=== PATIENT | female | born 2000 | race Caucasian/White ===

== ENCOUNTER 2024-05-20 04:09 | Outpatient (CLI) | payer MEDICAID, SELFPAY ==
[2024-05-20 16:54] LABS: Panorama Kit Sent via Fed Ex
[2024-05-20 17:03] LABS: Abs Immature Grans 0.07 10^3/uL (0.0-0.06); Absolute Basophil Count 0.04 10^3/uL (0.0-0.2); Absolute Lymphocyte Count 1.76 10^3/uL (1.2-3.4); Absolute Monocyte Count 0.54 10^3/uL (0.1-0.8); Absolute Neutrophil Count 8.31 10^3/uL (1.2-6.7); Basophils % 0.4 %; Eosinophils % 0.9 %; HCT 34.5 % (36.0-46.0); HGB 11.4 g/dL (11.2-15.7); Immature Grans % 0.6 %; Lymphocytes % 16.3 %; MCH 30.2 pg (27.0-33.0); MCV 92 fL (80-95); MPV 11.4 fL (8.0-11.0); Neutrophils % 76.8 %; Platelet Count 255 10^3/uL (130-400); RBC 3.77 10^6/uL (3.93-5.22); RDW-SD 43.2 fL; WBC 10.82 10^3/uL (4.4-10.8)
[2024-05-20 17:29] LABS: Hemoglobin A1C 5.3 % (<5.7)
[2024-05-20 17:40] LABS: ALT 19 U/L (14-59); AST 12 U/L (15-37); Albumin 3.2 g/dL (3.4-5.0); Alkaline Phosphatase 71 U/L (46-116); Anion Gap 12.1 mmol/L (3-11); BUN 7 mg/dL (7-18); Bilirubin, Total 0.26 mg/dL (0.2-1.0); CO2 20.9 mmol/L (21.0-32.0); CREATININE 0.7 mg/dL (0.55-1.02); Calcium 9.3 mg/dL (8.5-10.1); Chloride 105 mmol/L (98-107); Estimated GFR 123.01 (mL/min/1.73m2); Glucose 85 mg/dL (74-106); Potassium 3.9 mmol/L (3.5-5.1); Sodium 138 mmol/L (136-145); TSH (W/Ref FT4) 2.56 uIU/mL (0.36-3.74); Total Protein 7.3 g/dL (6.4-8.2)
[2024-05-23 12:58] LABS: HIV-1/2 Ag & Ab Screen Negative (Negative)
[2024-05-24 09:49] LABS: Hepatitis B Surface Ag Negative (Negative)
[2024-05-24 09:55] LABS: Varicella IgG Antibody Negative (See Note)
[2024-05-24 10:00] LABS: Rubella IgG Ab (UVM) Positive (See Note)
[2024-05-24 11:42] LABS: Hepatitis C Ab w Rflx HCV PCR Negative (Negative)
[2024-05-24 18:47] LABS: Syphilis IgG w/Reflex Nonreactive (Nonreactive)
[2024-05-28 16:55] LABS: Result Summary NEGATIVE; Specimen WB Whole Blood
== END 2024-05-20 04:10 | disposition home or self-care (01) ==
PROVIDERS: Visit Provider Advanced Practice Midwife
DX: Z34.91 Encounter for supervision of normal pregnancy, unspecified, first trimester (principal)
CPT/HCPCS: 36415; 80053; 81220; 81222; 86787; 86803; 86850; 86900; 86901; 87340; 87389; 83036; 84443; 85025; 86762; 86780

== ENCOUNTER 2024-05-20 16:06 | Outpatient (REF) | payer MEDICAID, SELFPAY ==
[2024-05-20 17:30] LABS: *AMPHETAMINES SCREEN URINE Negative (Negative); *BARBITURATES SCREEN URINE Negative (Negative); *BENZODIAZEPINES SCREEN URINE Negative (Negative); Cannabinoids THC Negative (Negative); Cocaine Screen,Urine Negative (Negative); METHADONE URINE SCREEN Negative (Negative); OPIATES URINE SCREEN Negative (Negative)
[2024-05-20 17:32] LABS: Tricyclic Antidepressants Negative (Negative)
[2024-05-20 18:21] LABS: COMMENT (LAB VIEW ONLY) 168.98 mg/dL; PROTEIN 22.7 mg/dL; Prot/Crea Ur Ratio 0.13
[2024-05-24 11:04] LABS: Fentanyl Scr w/Rfx Confirm Negative ng/mL (<1)
[2024-05-24 12:05] LABS: Chlamydia Result Negative (Negative); GC Result Negative (Negative)
[2024-05-26 08:53] LABS: Buprenorphine Negative ng/mL (Cutoff: 5.0); Norbuprenorphine Negative ng/mL (Cutoff: 2.5)
== END 2024-05-20 16:07 | disposition home or self-care (01) ==
LOC: LBN 16:06
PROVIDERS: Visit Provider Advanced Practice Midwife
DX: Z34.91 Encounter for supervision of normal pregnancy, unspecified, first trimester (principal)
CPT/HCPCS: 80307; 80348; 87491; 87591; 82565; 84156; 87086

== ENCOUNTER 2024-05-24 04:04 | Outpatient (CLI) | payer MEDICAID, SELFPAY ==
[2024-05-24 15:44] LABS: Glucose,1 Hr (Glucola) 94 mg/dL (80-140)
== END 2024-05-24 04:05 | disposition home or self-care (01) ==
LOC: LBO 04:04
PROVIDERS: Advanced Practice Midwife; Visit Provider Advanced Practice Midwife
DX: Z34.91 Encounter for supervision of normal pregnancy, unspecified, first trimester (principal)
CPT/HCPCS: 36415; 82950

== ENCOUNTER 2024-05-25 01:34 | Outpatient (CLI) | payer MEDICAID, SELFPAY ==
--- NOTE | 2024-05-25 07:42 | DI.US_ITS ---
Exam(s) US OB 2-3 TRIMESTER EXAM: US OB 2-3 TRIMESTER CLINICAL HISTORY: dating, ? anatomy,z34.90,O09.30. TECHNIQUE: Transabdominal obstetrical ultrasound performed. COMPARISON: No exams were available for comparison FINDINGS: Number of fetuses: One. position: Vertex. Placental grade: 1 Placental location: Posterior. No evidence of previa. Cervical length 5.3 cm. BIOMETRIC DATA: BPD: 38mm = 17+ 3 weeks HC: 140mm = 17+ 2 weeks AC: 122mm = 17+ 6 weeks FL: 26mm = 17+ 6 weeks Cisterna Magna: 1.8 mm Cerebellum: 1.6 cm EFW: 211 grms 19% Composite Age: 17+ 4 weeks EDC by US: October Heart Rate: 136 Splint finishBPM Amniotic fluid : Amount of fluid is within normal limits. ANATOMICAL SURVEY: Four-chambered heart: Unremarkable. LVOT: Unremarkable. RVOT: Unremarkable. Left-sided stomach: Unremarkable. urinary bladder: Unremarkable. Bilateral kidneys: Unremarkable. Three-vessel cord: Unremarkable. Cord insertion: Unremarkable. Posterior fossa:Unremarkable. ventricles: Unremarkable. nose: Unremarkable. lips: Unremarkable. palate: Unremarkable. spine: Unremarkable. Two arms and two legs: Unremarkable. IMPRESSION: 1. Single live intrauterine gestation measuring 17+ 4 weeks. 2. Normal anatomic survey. DATA REPOSITORY:
== END 2024-05-25 01:54 ==
PROVIDERS: Visit Provider Obstetrics & Gynecology
DX: Z34.92 Encounter for supervision of normal pregnancy, unspecified, second trimester (principal); Z3A.17 17 weeks gestation of pregnancy
CPT/HCPCS: 76805

== ENCOUNTER 2024-08-05 03:03 | Outpatient (CLI) | payer MEDICAID, SELFPAY ==
[2024-08-05 16:35] LABS: HCT 30.8 % (36.0-46.0); HGB 10.3 g/dL (11.2-15.7); MCH 30.4 pg (27.0-33.0); MCHC 33.4 % (32.0-36.0); MCV 91 fL (80-95); MPV 10.7 fL (8.0-11.0); Platelet Count 219 10^3/uL (130-400); RBC 3.39 10^6/uL (3.93-5.22); RDW 12.2 % (11.7-14.6); RDW-SD 40.4 fL; WBC 10.02 10^3/uL (4.4-10.8)
[2024-08-05 16:48] LABS: Glucose,1 Hr (Glucola) 134 mg/dL (80-140)
== END 2024-08-05 03:04 | disposition home or self-care (01) ==
LOC: LBO 03:03
PROVIDERS: Visit Provider Advanced Practice Midwife
DX: Z34.92 Encounter for supervision of normal pregnancy, unspecified, second trimester (principal)
CPT/HCPCS: 36415; 82950; 85027

== ENCOUNTER 2024-08-19 14:39 | Outpatient (REF) | payer MEDICAID, SELFPAY ==
[2024-08-19 16:49] LABS: *AMPHETAMINES SCREEN URINE Negative (Negative); *BARBITURATES SCREEN URINE Negative (Negative); *BENZODIAZEPINES SCREEN URINE Negative (Negative); Cannabinoids THC Negative (Negative); Cocaine Screen,Urine Negative (Negative); METHADONE URINE SCREEN Negative (Negative); OPIATES URINE SCREEN Negative (Negative)
[2024-08-19 16:51] LABS: Tricyclic Antidepressants Negative (Negative)
[2024-08-20 12:15] LABS: Fentanyl Scr w/Rfx Confirm Negative ng/mL (<1)
[2024-08-25 11:29] LABS: Buprenorphine Negative ng/mL (Cutoff: 5.0); Norbuprenorphine Negative ng/mL (Cutoff: 2.5)
== END 2024-08-19 14:40 | disposition home or self-care (01) ==
LOC: LBN 14:39
PROVIDERS: Advanced Practice Midwife; Visit Provider Advanced Practice Midwife
DX: Z34.93 Encounter for supervision of normal pregnancy, unspecified, third trimester (principal); Z3A.36 36 weeks gestation of pregnancy
CPT/HCPCS: 80307; 80348

== ENCOUNTER 2024-09-30 15:48 | Outpatient (REF) | payer MEDICAID, SELFPAY | END 2024-09-30 15:49 | disposition home or self-care (01) | LOC: LBN 15:48 | PROVIDERS: Visit Provider Obstetrics & Gynecology | DX: Z34.93 Encounter for supervision of normal pregnancy, unspecified, third trimester (principal); Z3A.36 36 weeks gestation of pregnancy | CPT/HCPCS: 87081 ==

== ENCOUNTER 2024-10-06 19:41 | Outpatient (CLI) | payer MEDICAID, SELFPAY ==
[2024-10-06 21:18] VITALS: BP 135/73; PULSE 81; TEMP 36.9
[2024-10-06 21:26] VITALS: BP 135/73; PULSE 81
[2024-10-06 21:43] VITALS: BP 135/73; PULSE 81; RESP 16; TEMP 36.9; O2SAT 98
[2024-10-06 22:16] LABS: ROM Plus Negative
--- NOTE | 2024-10-06 23:08 | W.OBNST ---
Date of service: 10/06/24 Time of Service: 23:11 NST Evaluation Reason for NST Reasons for Nonstress Test: OTHER, SEE COMMENT Reason for NST Other: Rule out Labor Gestational Age Gestational Age in Weeks and Days: 37 Weeks and 1Days Test and Monitor Explained Test/Monitor Explained: Test Explained, Monitor Explained and Patient Verbalized Understanding Vital Signs Blood Pressure: 135/73 Pulse: 81 Temperature: 98.4 F NST Information Date on Monitor: 10/06/24 Time on Monitor: 21:17 Date off Monitor: 10/06/24 Time off Monitor: 22:02 Total Time on Monitor: 45 NST Interventions: None and PO Hydration Contraction Frequency: 5-6 NST Evaluation Patient States Movement: Present FHR Baseline: 125 Variability: Moderate 6-25 bpm Accelerations: 15x15 NST Results: Reactive Note Ultrasound Done: N/A. NST Note Note: Elaine passed a small amount of blood tinged mucus and was experiencing a back ache. Uterine irritability noted with no regular contractions. neg pooling, neg nitrazine. She is wearing a pad which is dry. SVE cervix closed and soft/-2 station. igns of labor and comfort measures reviewed. RTO for visit. Call with signs of regular contractions. NST Reviewed and Verified by: Olivia Gates
[2024-10-06 23:11] VITALS: BP 135/73; PULSE 81; TEMP 36.9
--- NOTE | 2024-10-07 12:57 | W.OBNST ---
Date of service: 10/07/24 Time of Service: 22:15 NST Evaluation Reason for NST Reasons for Nonstress Test: OTHER, SEE COMMENT Reason for NST Other: Rule out Labor Gestational Age Gestational Age in Weeks and Days: 37 Weeks and 1Days Test and Monitor Explained Test/Monitor Explained: Test Explained, Monitor Explained and Patient Verbalized Understanding Vital Signs Blood Pressure: 135/73 Pulse: 81 Temperature: 98.4 F Urine Results Urine Protein: Negative Urine Ketones: Positive Urine Glucose: Negative Urine Blood: Negative NST Information Date on Monitor: 10/06/24 Time on Monitor: 21:17 Date off Monitor: 10/06/24 Time off Monitor: 22:02 Total Time on Monitor: 45 NST Interventions: None and PO Hydration Contraction Frequency: 5-6 NST Evaluation Patient States Movement: Present FHR Baseline: 125 Variability: Moderate 6-25 bpm Accelerations: 15x15 Decelerations: None NST Results: Reactive Note Ultrasound Done: Presentation (performed by Olivia Gates CNM) Presentation Results: cephalic Coding for Presentation w/NST: Completed Exam. NST Note Note: ROM plus is neg No labor, intact membranes. NST Reviewed and Verified by: Martha Rodriguez
[2024-10-07 12:58] VITALS: BP 135/73; PULSE 81; TEMP 36.9
== END 2024-10-06 23:15 ==
LOC: BCD 19:44 → OBS 21:11
PROVIDERS: Referring Provider Advanced Practice Midwife; Visit Provider Advanced Practice Midwife
DX: O47.1 False labor at or after 37 completed weeks of gestation (principal); Z3A.37 37 weeks gestation of pregnancy
CPT/HCPCS: 59025; 76816; 84112

== ENCOUNTER 2024-11-01 17:00 | Inpatient (IN) | payer MEDICAID, SELFPAY ==
[2024-11-01] VITALS (27 sets, daily range): BP systolic 133–134; BP diastolic 76–87; PULSE 96–133; RESP 18; TEMP 36.4; O2SAT 95–100
[2024-11-01 17:49] LABS: HGB 11.7 g/dL (11.2-15.7); MCH 28.7 pg (27.0-33.0); MCHC 32.5 % (32.0-36.0); MCV 89 fL (80-95); MPV 11.2 fL (8.0-11.0); Platelet Count 257 10^3/uL (130-400); RBC 4.07 10^6/uL (3.93-5.22); RDW 12.8 % (11.7-14.6); RDW-SD 41.4 fL; WBC 12.34 10^3/uL (4.4-10.8)
[2024-11-01] MEDS: Normal Saline Flush 10 ML SYR IVP (18:02)
--- NOTE | 2024-11-01 18:37 | W.PM.OBHPL1 ---
Date of service: 11/01/24 Time of Service: 18:37 Assessment and Plan Assessment and plan (1) Post-dates : Status: Acute Assessment and plan: I reviewed dating with Elaine. She had been tracking her menses with an hunter prior to and reports that her menses was irregular. She presented to care 05/13 at 16 weeks and 17+4 week US on 05/25 confirmed EDC 10/29/24. This EDC was adjusted today in the chart based on her information about irregular menses. I requested that Elaine ask the baby's father for records such as bracelet and crib card to confirm the weights of her previous babies who live with him in [place]. I discussed the option of waiting for spontaneous labor at this time based on unfavorable cervix with bishops score of 2 and uncertain dating with best estimate placing her at 40 + 3 weeks gestation. Preeclampsia labs drawn due to history of preeclampsia. Await results. BP 130s/70s with no symptoms of preeclampsia reported. She and her parner discussed waiting a few more days for the onset of spontaneous labor and they would prefer to return in 4 days for cervical ripening. Reviewed kick counting. OB-HPI Labor/Delivery History of Present Illness Reason for Visit: induction Chief Complaint: Other (post dates , NST). ARELIS Calculator Estimated Delivery Date Method Current WG Current Estimate 10/29/24 Ultrasound #1 40w 3d Other Estimates 10/24/24 LMP (Uncertain) 41w 1d Comments: Elaine was admitted in anticipation of possible induction today pending results of cervical exam. Due to history of trauma, Elaine has had difficulty with pelvic exams and requested nitrous oxide analgesia for cervical assessment. She expressed that she hopes to go into labor naturally. Elaine reported that her second baby was 13 + pounds and her first baby was 10 pound 4 ounces. On her chart it was indicated that the first baby was 8-11 and the second was 10-4. History of Present Expected Delivery Route/Plan - CNM FOB - Casimiro Couture (his first child) BG-Lizbeth Varicella non-immune, accepts vaccine Desires early epidural, declines episiotomy GBS POSITIVE - plan PCN prophylaxis in labor Specific Issues/Plan 1. BMI 35, hx macrosomia, Hgb A1C=5.3, early glucola=94, 28 wk cmdnowp=380 2. hx gHTN & pre-eclampsia, started low dose ASA @ 16 wks 2a. Initial CMP=nml, urine prot/creat ratio=0.13 3. Hx PTSD, THEE, Bipolar, depression, accepts referral to [facility] 06/03/24 3a. See note from [facility] appt 06/09/24 re: relationship issues, Stopped Zoloft and Wellbutrin when became preg. 3b. Is considering restarting Zoloft in third trimester, restart @ 50mg on 10/11/24 4. Pt reports hypothyroidism without Rx, initial TSH=2.56 5. 5P screen+, initial UDS negative, 28 wk UDS- neg 6. Unable to tolerate speculum for PAP, plan PAP visit w/support plan in place- 06/22-declines pap until 6 week checkup. 7. CF screen negative; cfDNA low risk x5 female 8. History of precipitous delivery. 9. Anemia - Hgb 10.3- vitamin recommended daily. repeat at 36 weeks 11.1 10. Desires BTL, will have appt with for consent process 09/23/24-[place] Medicaid consent signed PFSH All Active Problems (Updated 11/01/24 @ 18:40 by Olivia Gates CNM) Post-dates (Acute) Group B streptococcal carriage complicating (Acute) Anemia affecting (Acute) Maternal varicella, non-immune (Acute) Depression (Chronic) PTSD (post-traumatic stress disorder) (Acute Unknown) History of macrosomia in in prior , currently (Acute) Late care (Acute) Hx of pre-eclampsia in prior , currently (Acute) (Acute) Medical History (Updated 11/01/24 @ 18:40 by Olivia Gates CNM) Post depression Hypothyroidism per pt report, unverified, initial TSH is nml Asthma Anemia Eating disorder Psychiatric disorder Migraine High blood pressure Depression with anxiety Family History (Updated 08/19/24 @ 14:46 by Olivia Gates CNM) Father , age 52 Heart disease Stroke Mother Hyperlipidemia History of IBS Sister History of PCOS Diabetes Sister Preeclampsia Other Blood clotting disorder Hypertension Thyroid disorder Social History Smoking/Tobacco Use Status: Current every day Tobacco: How many years used: 2 Smokeless tobacco user: other Quit status: considering quitting Second Hand Exposure: Yes Smoking risk assessment performed?: Yes Alcohol Intake: never Drug use: Never Substance use type: does not use Household members: significant other Housing: apartment Sexually active: Yes Do you think of yourself as: straight/heterosexual Current gender identity: female What is your relationship status?: living with partner Panel score (0-1 are the most socially isolated patients): 1 What type of physical activity do you participate in: regular exercise Duration: 15-30 minutes/day Jazzmine/Scientology: Pentacostal Seatbelt use: always Helmet use: Yes Do you feel safe at home: Yes Do you feel safe in your relationship?: Yes Female Reproductive History Menstrual Age of Menarche: 11 Duration of menses: 3-5 days control method: condoms History History 4 Para 2 Hx # Term Pregnancies 2 Multiple births 0 Hx # Pregnancies 0 Ectopic pregnancies 0 AB induced 0 Hx Number of Living Children 2 AB spontaneous 1 Past Pregnancies Del. Date GA/Weeks # Preg Succ Route Wgt Sex Labor Lgth Anesthesia Location Prov Compl 05/05/18 40 No Yes vaginal 8 lb 11 oz Female 24+ hr [facility] 02/07/20 4 No 12/13/20 40 No Yes vaginal 10 lb 4 oz Male 2 hrs [facility] [place] Delivery Date: 05/05/18 Last Updated by: Olivia Gates CNM IOL for being past her ARELIS, gHTN, nml , episiotomy, Melissa Delivery Date: 02/07/20 Last Updated by: Martha Rodriguez SAB Delivery Date: 12/13/20 Last Updated by: Mratha Rodriguez Pre-eclampsia, spontaneous labor, rapid labor, PPH, no transfusion, [facility] Allergies and Home Medications Allergies Allergy/AdvReac Type Severity Reaction Status Date / Time Peanut and Related Legumes Allergy Severe Anaphylaxis Verified 10/28/24 10:27 (Peanut (Legumes)) animal dander Allergy Intermediate Hives Verified 10/28/24 10:27 Bees Allergy Severe Anaphylaxis Uncoded 10/28/24 10:27 Hornets Allergy Severe Anaphylaxis Uncoded 10/28/24 10:27 Home Medications ?Medication ?Instructions ?Recorded ?Confirmed ?Type vits no.126-ferrous fum 1 tab PO DAILY 05/13/24 10/28/24 History 28 mg iron-folic acid 800 mcg tablet (Classic ) aspirin 81 mg tablet,delayed 81 mg PO DAILY 05/20/24 10/28/24 History release (Adult Low Dose Aspirin) epinephrine 0.3 mg/0.3 mL 0.3 mg IM ONCE 07/21/24 10/28/24 History injection, auto-injector sertraline 50 mg tablet (Zoloft) 50 mg PO DAILY #30 tabs 10/11/24 10/28/24 Rx Exam Physical Exam Vital signs: Temp Pulse Resp BP Pulse Ox 97.6 F 111 H 18 134/76 98 11/01/24 17:30 11/01/24 18:13 11/01/24 17:30 11/01/24 18:13 11/01/24 18:09 Vital Signs Reviewed: Yes Constitutional Constitutional: no acute distress Detailed Labor and Delivery Exam Dilation: 0.5 Effacement (%): 20 station: -3 Cervix position: posterior Consistency: medium Reveles Score: Cervical Points Exam 0 1 2 3 Dilation Closed 1-2cm 3-4 cm 5-6cm Effacement 0-30% 40-50% 60-70% 80% Consistency Firm Medium Soft Station -3 -2 -1,0 +1,+2 Position Posterior Mid Anterior REVELES Score(Cervical Ripeness Score): 2 Amniotic Membrane Status: Intact Monitor Mode: External Contraction Frequency(min): occasional Contraction Intensity: Mild Comments: contractions not felt by Elaine Fetus A Heart Rate Baseline: 140 Monitor Accelerations: 15 X 15 Monitor Decelerations: None Variability: Moderate (6-25 BPM) Presentation: Cephalic Categories: Category I Est. Weight: 9 lbs HEENT Exam HEENT Exam: Normal Respiratory Exam Respiratory Exam: Normal Cardiovascular Exam Cardiovascular Exam: Normal Abdominal Exam Abdominal Exam: Normal Exam Exam: Normal Extremities Exam Extremities Exam: Normal Skin Exam Skin Exam: Normal Psychiatric Exam Psychiatric Exam: Normal Results Results Group Beta Strep: Positive Blood Type: B+ Rubella Status: Immune Varicella Immunity: Nonimmune Abnormal Lab Findings: Abnormal Labs 11/01/24 17:16 WBC 12.34 H MPV 11.2 H Risk Assessment Risk for Shoulder Dystocia Historical/Initial OB: POSITIVE FOR: Pre- BMI>30 and Previous Macrosomia; NEGATIVE FOR: Pelvic Abnormality or Previous Shoulder Dystocia 36 Weeks: NEGATIVE FOR: Current Gestational DM, EFW>4500gms or Maternal Weight Gain>40lbs 40 Weeks: POSTIVE FOR: Post Dates; NEGATIVE FOR: EFW> 4500 gms or Maternal Weight Gain >40lb Increased Risk?: Yes Counseling: proven pelvis to 10'4 Risk for Pre-Eclampsia Daily Dose ASA Indicated: Yes (hx of Pre-E) Date Initiated/Initials: started low dose ASA at 16 wks. Yes, if one or more: POSTIVE FOR: Hx Pre-E/Gest HTN; NEGATIVE FOR: Chronic HTN, Multiple Gestation, Pre-gestational DM, Renal Disease, Systemic Lupus or APA Syndrome Yes, if 2 or more: POSITIVE FOR: BMI>30; NEGATIVE FOR: Nulliparity, Age>= 35 yrs, >10yr btwn pregnancies, ethinicty, Mother/Sister w/ Pre-E or Previous IUGR Risk for Post- Hemorrhage Initial: POSITIVE FOR: Previous PPH; NEGATIVE FOR: Multiple Gestation, Known Clotting Deficiency, Grand Multiparity or Anticoagulation 36 Weeks: NEGATIVE FOR: Anemia, hgb<10, Low platelets(thrombocytopenia), Gestational HTN or Pre-E, Polyhydraminios or EFW>4500gms 40 Weeks: NEGATIVE FOR: Anemia, hgb<10, Low platelets (thrombocytopenia), Gestation HTN or Pre-E, Polyhydraminios or EFW>4500gms At Risk?: Yes (Hx of PPH) Risks Reviewed Risks Reviewed Upon Admission: Yes
[2024-11-01 18:41] LABS: Lab Add On Test DONE
[2024-11-01 19:10] LABS: ALT 13 U/L (14-59); AST 13 U/L (15-37); Albumin 2.9 g/dL (3.4-5.0); Alkaline Phosphatase 191 U/L (46-116); Anion Gap 11.6 mmol/L (3-11); BUN 8 mg/dL (7-18); Bilirubin, Total 0.32 mg/dL (0.2-1.0); CO2 21.4 mmol/L (21.0-32.0); CREATININE 0.6 mg/dL (0.55-1.02); Chloride 104 mmol/L (98-107); Estimated GFR 127.67 (mL/min/1.73m2); Glucose 101 mg/dL (74-106); Sodium 137 mmol/L (136-145); Total Protein 6.7 g/dL (6.4-8.2)
[2024-11-01 19:39] LABS: COMMENT (LAB VIEW ONLY) 154.95 mg/dL; PROTEIN 23.4 mg/dL; Prot/Crea Ur Ratio 0.15
[2024-11-01 19:56] LABS: Uric Acid 4.3 mg/dL (2.6-6.0)
[2024-11-05 09:28] VITALS: BP 136/87; PULSE 77
== END 2024-11-01 18:45 | disposition home or self-care (01) | DRG 832 ==
PROVIDERS: Admitting Provider Advanced Practice Midwife; Visit Provider Advanced Practice Midwife
DX: O48.0 Post-term pregnancy (principal); O10.013 Pre-existing essential hypertension complicating pregnancy, third trimester; Z3A.40 40 weeks gestation of pregnancy; O99.820 Streptococcus B carrier state complicating pregnancy; O99.343 Other mental disorders complicating pregnancy, third trimester; F31.9 Bipolar disorder, unspecified; F41.9 Anxiety disorder, unspecified; O99.013 Anemia complicating pregnancy, third trimester; D64.9 Anemia, unspecified; O99.353 Diseases of the nervous system complicating pregnancy, third trimester; O99.513 Diseases of the respiratory system complicating pregnancy, third trimester; J45.909 Unspecified asthma, uncomplicated; G43.909 Migraine, unspecified, not intractable, without status migrainosus; O99.333 Smoking (tobacco) complicating pregnancy, third trimester; F17.210 Nicotine dependence, cigarettes, uncomplicated
CPT/HCPCS: 80053; 85027; 86850; 86900; 86901; 59025; 82565; 84156; 84550; G0378

== ENCOUNTER 2024-11-05 08:35 | Outpatient (CLI) | payer MEDICAID, SELFPAY ==
[2024-11-05 12:01] VITALS: BP 138/79; PULSE 105; TEMP 36.8
[2024-11-05 12:04] VITALS: BP 138/79; PULSE 105
[2024-12-20 18:56] VITALS: BP 138/79; PULSE 105; TEMP 36.8
--- NOTE | 2024-12-20 18:56 | W.OBNST ---
Date of service: 11/05/24 Time of Service: 13:00 NST Evaluation Reason for NST Reasons for Nonstress Test: POSTDATES Gestational Age Gestational Age in Weeks and Days: 41 Weeks and 2Days Test and Monitor Explained Test/Monitor Explained: Test Explained, Monitor Explained and Patient Verbalized Understanding Vital Signs Blood Pressure: 138/79 Pulse: 105 Temperature: 98.2 F NST Information Date on Monitor: 11/05/24 Time on Monitor: 11:57 Date off Monitor: 11/05/24 Time off Monitor: 12:19 Total Time on Monitor: 22 NST Interventions: PO Hydration Contraction Frequency: 5-8 NST Evaluation Patient States Movement: Present FHR Baseline: 125 Variability: Moderate 6-25 bpm Accelerations: 15x15 Decelerations: None NST Results: Reactive Note Ultrasound Done: URI Total URI: 12.9 Other Pertinent Findings: Presentation (cephalic, LOP) Coding for URI w/NST: Completed Exam. NST Note NST Reviewed and Verified by: Martha Rodriguez
== END 2024-11-05 14:12 ==
LOC: BCD 08:37 → OBS 11:28
PROVIDERS: Visit Provider Advanced Practice Midwife
DX: O48.0 Post-term pregnancy (principal); Z3A.41 41 weeks gestation of pregnancy
CPT/HCPCS: 59025

== ENCOUNTER 2024-11-07 07:48 | Inpatient (IN) | payer MEDICAID, SELFPAY ==
[2024-11-07] VITALS (15 sets, daily range): BP systolic 119–154; BP diastolic 58–79; PULSE 75–88; RESP 16; TEMP 36.3–36.7; O2SAT 98–99
[2024-11-07] MEDS: Penicillin G POT. 5,000,000 UNITS in Normal Saline 100 ML 200 UNITS IVPB (08:05)
[2024-11-07] MEDS: FentaNYL/ROPIvacaine 2 mcg/ml and 0.1% 200 ML CADD Cassette EP (08:18)
[2024-11-07] MEDS: Normal Saline Flush 10 ML SYR IVP (08:18)
[2024-11-07 08:30] LABS: HGB 11.7 g/dL (11.2-15.7); MCH 28.9 pg (27.0-33.0); MCHC 32.5 % (32.0-36.0); MCV 89 fL (80-95); MPV 11.3 fL (8.0-11.0); Platelet Count 250 10^3/uL (130-400); RBC 4.05 10^6/uL (3.93-5.22); RDW 12.7 % (11.7-14.6); RDW-SD 41.1 fL; WBC 14.58 10^3/uL (4.4-10.8)
[2024-11-07 08:49] LABS: ALT 14 U/L (14-59); AST 14 U/L (15-37); Albumin 2.7 g/dL (3.4-5.0); Alkaline Phosphatase 189 U/L (46-116); BUN 10 mg/dL (7-18); Bilirubin, Total 0.29 mg/dL (0.2-1.0); CREATININE 0.8 mg/dL (0.55-1.02); Calcium 8.7 mg/dL (8.5-10.1); Chloride 104 mmol/L (98-107); Glucose 104 mg/dL (74-106); Sodium 137 mmol/L (136-145); Total Protein 6.9 g/dL (6.4-8.2)
--- NOTE | 2024-11-07 09:12 | ANES.NEUR_ITS ---
Epidural/Spinal Catheter Date Performed: 11/07/24 Procedure Start: 08:05 Procedure Stop: 08:32 Requesting Provider: Olivia Gates Procedure Location: Obstetrics Reason Performed: Labor Epidural Standard Monitors Applied: Blood Pressure, SpO2 and See EMR for corresponding vital signs Patient Position: Sitting Sedation Given (Indicate Dose Given): No Sedation given Patient Mental Status: Awake Sterility: Hand Hygiene, Surgical Cap, Surgical Mask, Sterile Gloves, Sterile Drape/Sheet and Chlorhexidine Procedure Location: L2-L3 Interspace Epidural Needle: Tuohy 17 Guage Needle Length: 3.5 Inch Needle Approach: Midline Epidural Procedure: Skin Prepped, Sterile Drape Placed, 1% Lidocaine to skin and subcutaneous tissue with 25G needle, Tuohy Needle placed, OLGA to Saline Used, Epidural Catheter Placed, Negative Heme, Negative CSF Flow and Tuohy Needle Removed Catheter Placed?: Catheter Placed Test Dose (Indicate Dose Given): 3ml 1.5% Lidocaine with 1:200K Epinephrine Given and Negative Test Dose Loss of Resistance Depth (cm): 7 Catheter depth at skin (cm): 12 Dressing: Sorbaview Dressing Placed, Mastisol Used and Dressing reinforced with Tape Epidural Pr ovider Bolus (Indicate Dose Given): Total bolus dose given in 3-5 ml divided doses and Total Ropivacaine 0.1% with Fentanyl 2mcg/ml Given from pump. (ml) Dose:: 5mlx4 given Additives (Indicate Dose Given ): None Infusion Medication: Medication Infusion Began Medication Infusion: Ropivacaine 0.1% with Fentanyl 2mcg/ml Maintenance Infusion Rate (ml/hour): 10 PCEA Bolus Dose (ml): 5 Post Procedure Pain score (0-10): 1 Block Level: N/A Paresthesia: None Ultrasound: Used to hannah site Number of Attempts (See previous attempts in note section): 1 Procedure Tolerated: No Complications and Patient tolerated well Procedure Outcome: Successful Procedure Comment:: Pt requesting at 8cm shortly after arrival. US used to hannah spine. Epidural placed with ease. Negative test dose and dose began. SROM during epidural and sense ot push. Explained PCEA use and questions answered. Performed By: Heriberto Cartagena
[2024-11-07] MEDS: Oxytocin/Normal Saline 30 UNIT/500 ML BAG 95 UNITS IV (09:24)
--- NOTE | 2024-11-07 09:44 | W.PM.OBHPL1 ---
Date of service: 11/07/24 Time of Service: 09:44 Assessment and Plan Assessment and plan (1) Group B streptococcal carriage complicating : Status: Acute Assessment and plan: penicillin per protocol for GBS prophylaxis (2) Spontaneous onset of labor: Status: Acute Assessment and plan: Admit to Center and routine admission labs. Comfort measures. Prepared for epidural and Heriberto WORRELL paged. Anticipate . OB-HPI Labor/Delivery History of Present Illness Reason for Visit: Rule out Labor Chief Complaint: Uterine Contractions. ARELIS Calculator Estimated Delivery Date Method WG Current Estimate 10/29/24 Ultrasound #1 Other Estimates 10/24/24 LMP (Uncertain) Infant Delivery Date-Baby A 11/07/24 41w 2d Comments: Elaine presented in active labor with an urge to push. She denies leaking of fluid. She requests an epidural. Nitrous oxide was provided for pain relief. History of Present Expected Delivery Route/Plan - CNM FOB - Casimiro Couture (his first child) BG-Lizbeth Varicella non-immune, accepts vaccine Desires early epidural, declines episiotomy GBS POSITIVE - plan PCN prophylaxis in labor Specific Issues/Plan 1. BMI 35, hx macrosomia, Hgb A1C=5.3, early glucola=94, 28 wk dxttsaz=455 2. hx gHTN & pre-eclampsia, started low dose ASA @ 16 wks 2a. Initial CMP=nml, urine prot/creat ratio=0.13 3. Hx PTSD, THEE, Bipolar, depression, accepts referral to [facility] 06/03/24 3a. See note from [facility] appt 06/09/24 re: relationship issues, Stopped Zoloft and Wellbutrin when became preg. 3b. Is considering restarting Zoloft in third trimester, restart @ 50mg on 10/11/24 4. Pt reports hypothyroidism without Rx, initial TSH=2.56 5. 5P screen+, initial UDS negative, 28 wk UDS- neg 6. Unable to tolerate speculum for PAP, plan PAP visit w/support plan in place- 06/22-declines pap until 6 week checkup. 7. CF screen negative; cfDNA low risk x5 female 8. History of precipitous delivery. 9. Anemia - Hgb 10.3- vitamin recommended daily. repeat at 36 weeks 11.1 10. Desires BTL, will have appt with for consent process 09/23/24-[place] Medicaid consent signed [place] All Active Problems (Updated 11/07/24 @ 09:46 by Olivia Gates CNM) Spontaneous onset of labor (Acute) Post-dates (Acute) Group B streptococcal carriage complicating (Acute) Anemia affecting (Acute) Maternal varicella, non-immune (Acute) Depression (Chronic) PTSD (post-traumatic stress disorder) (Acute Unknown) History of macrosomia in in prior , currently (Acute) Late care (Acute) Hx of pre-eclampsia in prior , currently (Acute) (Acute) Medical History (Updated 11/07/24 @ 09:46 by Olivia Gates CNM) Post depression Hypothyroidism per pt report, unverified, initial TSH is nml Asthma Anemia Eating disorder Psychiatric disorder Migraine High blood pressure Depression with anxiety Family History (Updated 08/19/24 @ 14:46 by Olivia Gates CNM) Father , age 52 Heart disease Stroke Mother Hyperlipidemia History of IBS Sister History of PCOS Diabetes Sister Preeclampsia Other Blood clotting disorder Hypertension Thyroid disorder Social History Smoking/Tobacco Use Status: Current every day Tobacco Type: e-cigarettes Tobacco: How many years used: 2 Smokeless tobacco user: other Quit status: considering quitting Second Hand Exposure: Yes Smoking risk assessment performed?: Yes Alcohol Intake: never Drug use: Never Substance use type: does not use Household members: significant other Housing: apartment Sexually active: Yes Do you think of yourself as: straight/heterosexual Current gender identity: female What is your relationship status?: living with partner Panel score (0-1 are the most socially isolated patients): 1 What type of physical activity do you participate in: regular exercise Duration: 15-30 minutes/day Jazzmine/Evangelical: Pentacostal Seatbelt use: always Helmet use: Yes Do you feel safe at home: Yes Do you feel safe in your relationship?: Yes Female Reproductive History Menstrual Age of Menarche: 11 Duration of menses: 3-5 days control method: condoms History History 4 Para 2 Hx # Term Pregnancies 2 Multiple births 0 Hx # Pregnancies 0 Ectopic pregnancies 0 AB induced 0 Hx Number of Living Children 2 AB spontaneous 1 Past Pregnancies Del. Date GA/Weeks # Preg Succ Route Wgt Sex Labor Lgth Anesthesia Location Prov Complic 05/05/18 40 No Yes vaginal 8 lb 11 oz Female 24+ hr [facility] [place] 02/07/20 4 No 12/13/20 40 No Yes vaginal 10 lb 4 oz Male 2 hrs [facility] [place] Delivery Date: 05/05/18 Last Updated by: Olivia Gates CNM IOL for being past her ARELIS, gHTN, nml , episiotomy, Melissa Delivery Date: 02/07/20 Last Updated by: Martha Rodriguez SAB Delivery Date: 12/13/20 Last Updated by: Martha Rodriguez Pre-eclampsia, spontaneous labor, rapid labor, PPH, no transfusion, [facility] Allergies and Home Medications Allergies Allergy/AdvReac Type Severity Reaction Status Date / Time Peanut and Related Legumes Allergy Severe Anaphylaxis Verified 10/28/24 10:27 (Peanut (Legumes)) animal dander Allergy Intermediate Hives Verified 10/28/24 10:27 Bees Allergy Severe Anaphylaxis Uncoded 10/28/24 10:27 Hornets Allergy Severe Anaphylaxis Uncoded 10/28/24 10:27 Home Medications ?Medication ?Instructions ?Recorded ?Confirmed ?Type vits no.126-ferrous fum 1 tab PO DAILY 05/13/24 11/07/24 History 28 mg iron-folic acid 800 mcg tablet (Classic ) aspirin 81 mg tablet,delayed 81 mg PO DAILY 05/20/24 11/07/24 History release (Adult Low Dose Aspirin) epinephrine 0.3 mg/0.3 mL 0.3 mg IM ONCE 07/21/24 11/07/24 History injection, auto-injector sertraline 50 mg tablet (Zoloft) 50 mg PO DAILY #30 tabs 10/11/24 11/07/24 Rx Exam Physical Exam Vital signs: Temp Pulse Resp BP Pulse Ox 97.3 F L 75 16 154/79 H 99 11/07/24 08:24 11/07/24 07:58 11/07/24 07:58 11/07/24 07:58 11/07/24 07:58 Vital Signs Reviewed: Yes Constitutional Constitutional: mild distress Detailed Labor and Delivery Exam Dilation: 8 Effacement (%): 100 station: -1 Cervix position: mid Consistency: soft Arroyo Score: Cervical Points Exam 0 1 2 3 Dilation Closed 1-2cm 3-4 cm 5-6cm Effacement 0-30% 40-50% 60-70% 80% Consistency Firm Medium Soft Station -3 -2 -1,0 +1,+2 Position Posterior Mid Anterior Amniotic Membrane Status: Intact Monitor Mode: External Contraction Frequency(min): every 3-4 Contraction Duration(sec): 60 Contraction Intensity: Strong Fetus A Heart Rate Baseline: 120 Monitor Accelerations: 15 X 15 Monitor Decelerations: None Variability: Moderate (6-25 BPM) Presentation: Cephalic Categories: Category I Date of Membrane Rupture: 11/07/24 Time of Membrane Rupture: 08:10 HEENT Exam HEENT Exam: Normal Respiratory Exam Respiratory Exam: Normal Cardiovascular Exam Cardiovascular Exam: Normal Exam Exam: Normal Extremities Exam Extremities Exam: Normal Skin Exam Skin Exam: Normal Psychiatric Exam Psychiatric Exam: Normal Results Results Group Beta Strep: Positive Abnormal Lab Findings: Abnormal Labs 11/07/24 08:20 WBC 14.58 H MPV 11.3 H Anion Gap 12.0 H AST 14 L Alkaline Phosphatase 189 H Albumin 2.7 L Risk Assessment Risk for Shoulder Dystocia Historical/Initial OB: POSITIVE FOR: Pre- BMI>30 and Previous Macrosomia; NEGATIVE FOR: Pelvic Abnormality or Previous Shoulder Dystocia 36 Weeks: NEGATIVE FOR: Current Gestational DM, EFW>4500gms or Maternal Weight Gain>40lbs 40 Weeks: POSTIVE FOR: Post Dates; NEGATIVE FOR: EFW> 4500 gms or Maternal Weight Gain >40lb Increased Risk?: Yes Counseling: proven pelvis to 9+ Risk for Pre-Eclampsia Date Initiated/Initials: started low dose ASA at 16 wks. Yes, if one or more: POSTIVE FOR: Hx Pre-E/Gest HTN; NEGATIVE FOR: Chronic HTN, Multiple Gestation, Pre-gestational DM, Renal Disease, Systemic Lupus or APA Syndrome Yes, if 2 or more: POSITIVE FOR: BMI>30; NEGATIVE FOR: Nulliparity, Age>= 35 yrs, >10yr btwn pregnancies, ethinicty, Mother/Sister w/ Pre-E or Previous IUGR Risk for Post- Hemorrhage Initial: POSITIVE FOR: Previous PPH; NEGATIVE FOR: Multiple Gestation, Known Clotting Deficiency, Grand Multiparity or Anticoagulation 36 Weeks: NEGATIVE FOR: Anemia, hgb<10, Low platelets(thrombocytopenia), Gestational HTN or Pre-E, Polyhydraminios or EFW>4500gms 40 Weeks: NEGATIVE FOR: Anemia, hgb<10, Low platelets (thrombocytopenia), Gestation HTN or Pre-E, Polyhydraminios or EFW>4500gms At Risk?: No Risks Reviewed Risks Reviewed Upon Admission: Yes
--- NOTE | 2024-11-07 10:31 | W.OBDELIVERY ---
Date of service: 11/07/24 Time of Service: 10:31 OB Labor/ Delivery Information Baby A Delivery Delivery Method: Spontaneaous Cephalic Position: Vertex Vertex Position: Left Occipital Anterior Cord Description-Baby A: 3 Vessels Amniotic Fluid: Clear Estimated Blood Loss: 200 Delivery Outcome: Liveborn Infant Transferred: Remains with Mother Note: Luba hammond broke while sitting up for epidural. She received good effect from epidural. Shortly after epidural she had an urge to push. FHTs 120s during first stage of labor. FHTs 120s in second stage. She progressed to full dilation and began pushing. Second stage huddle was done. Spontaneous delivery of female delivered in RUBÉN position. Baby was placed on mother's abdomen and dried and stimulated. Spontaneous cry. Cord was clamped and cut by the baby's father. The placenta delivered spontaneously and appears to by intact with a three vessel cord. Pitocin 30 units was administered prior to delivery of the placenta. The perineum was inspected and it was intact. The baby did breastfeed. After delivery, Mother and baby and father of the baby were stable and bonding well in the delivery room and there were no complications. Providers Nurse Compounding And Finishing Supervisor: Olivia Gates Supervisor Pipe Joints: Heriberto Cartagena Nurse: Elaine López Nurse: Arianna Michel Labor/Delivery Information Number of Babies in Womb: 1 Steroids Given: None Reason Steroids Not Administered: N/A Group Beta Strep: Positive Antibiotics Administered: Yes Number of Doses of Antibiotics: 1 Rubella Status: Immune Blood Type: B+ Varicella Immunity: Nonimmune Born En Route: No Maternal Complications: None Shoulder Dystocia: No Stages of Labor Onset of Labor Date: 11/07/24 Onset of Labor Time: 02:00 Complete Dilatation Date: 11/07/24 Complete Dilatation Time: 08:31 Labor - Stage 1 Duration: 6 hours and 31 minutes ROM Baby A: 11/07/24 ROM Baby A: 08:10 ROM Total Time- Baby A: [id number] Delivery Date-Baby A: 11/07/24 Delivery Time-Baby A: 09:23 Labor Stage 2 Duration: 52 minutes Placenta Delivery Date-Baby A: 11/07/24 Placenta Delivery Time-Baby A: 09:29 Labor-Stage 3 Duration: 6 minutes Total Length of Labor-Baby A: 7 hours and 23 minutes Placenta Status: Delivered Baby A Gender: Female Gestational Status: Term (39-41.6 wks) Gestational Age in Weeks/Days: 41 Weeks and 2 Days Score-1 Minute Interval(Baby A) Heart Rate-1 minute: 100 BPM or Greater Respiratory Effort- 1 minute: Spontaneous/Strong Cry Muscle Tone-1 minute: Active Movement Reflex Response-1 minute: Prompt Response Color-1 minute: Bluish Hands or Feet Total Score-1 minute: 9 Score-5 Minute Interval(Baby A) Heart Rate- 5 minute: 100 BPM or Greater Respiratory Effort-5 minute: Spontaneous/Strong Cry Muscle Tone-5 minute: Active Movement Reflex Response-5 minute: Prompt Response Color-5 minute: Pallor or Cyanosis Total Score- 5 minute: 8
[2024-11-07] MEDS: Ibuprofen 600 MG TAB (18:03)
[2024-11-07] MEDS: Acetaminophen 325 MG TAB 650 MG PO ×2 (18:03→23:34)
[2024-11-07 19:52] LABS: *AMPHETAMINES SCREEN URINE Negative (Negative); *BARBITURATES SCREEN URINE Negative (Negative); *BENZODIAZEPINES SCREEN URINE Negative (Negative); Cannabinoids THC Negative (Negative); Cocaine Screen,Urine Negative (Negative); METHADONE URINE SCREEN Negative (Negative); OPIATES URINE SCREEN Negative (Negative); Tricyclic Antidepressants Negative (Negative)
[2024-11-07] MEDS: Ibuprofen 600 MG TAB PO (23:34)
[2024-11-08] MEDS: Acetaminophen 325 MG TAB 650 MG PO ×3 (05:26→22:07)
[2024-11-08] MEDS: Ibuprofen 600 MG TAB PO ×3 (05:27→22:08)
[2024-11-08 08:01] VITALS: BP 147/77; PULSE 67; RESP 20; TEMP 36.5; O2SAT 99
[2024-11-08] MEDS: Sertraline 50 MG TAB PO (09:30)
--- NOTE | 2024-11-08 09:35 | W.ANESPOSTOP ---
Postoperative Evaluation Date, Time and Location Date Performed: 11/08/24 Time Performed: 09:39 Patient Location: Obstetrics Vital Signs Most Recent Imported Vital Signs: Most Recent Vital Signs Temp Pulse Resp BP Pulse Ox 36.5 C 67 20 147/77 H 99 11/08/24 08:01 11/08/24 08:01 11/08/24 08:01 11/08/24 08:01 11/08/24 08:01 Pain Score Most Recent Pain Score: Most Recent Pain Score Pain Level 6 11/07/24 18:03 Assessment Mental Status: Awake (Alert & Oriented to Patient Baseline) Airway and Respiratory Function: Patent airway with normal (patient baseline) respiratory exam Cardiovascular Function: Hemodynamically Stable Hydration Status: Adequately Hydrated Nausea & Vomiting: No Nausea or Vomiting Pain: Pain is tolerable per patient (Reports tolerable at this time. ) Peripheral Nerve Block: Other (Epidural appropriately resolved, denied complaint, denied headache, denied backpain. Per RN catheter removed with tip intact.)
[2024-11-08] MEDS: Docusate Sodium 100 MG CAP ×2 (11:49→19:05)
[2024-11-08 19:31] VITALS: BP 140/86; PULSE 89; RESP 16; TEMP 36.7; O2SAT 94
[2024-11-08 19:41] VITALS: BP 131/79
[2024-11-09] MEDS: Ibuprofen 600 MG TAB PO (09:30)
[2024-11-09] MEDS: Acetaminophen 325 MG TAB 650 MG PO (09:30)
[2024-11-09] MEDS: Docusate Sodium 100 MG CAP (09:31)
[2024-11-09] MEDS: Sertraline 50 MG TAB PO ×2 (09:31→11:29)
[2024-11-09 10:13] VITALS: BP 132/76; PULSE 67; RESP 17; TEMP 36.5; O2SAT 99
--- NOTE | 2024-11-09 11:06 | OBPPV_ITS ---
Date of service: 11/08/24 Time of Service: 16:00 Assessment and Plan Assessment and plan (1) Depression: Status: Chronic Assessment and plan: taking sertraline 50 mg daily and will consider increasing the dose before dischrge if she desires (2) Term of female : Status: Acute Assessment and plan: Caring for baby independently. Pain is managed well with oral analgesics. Voiding without difficulty. pumping and feeding. Receiving nursing and LC support A - stable mother and baby , Post day 1 P - Discharge to home tomorrow. Routine post instructions. [facility] Subjective Subjective Interval history: Elaine feels well. She is receiving assistance with pumping and developing a feeding plan. She reports previous difficulty with and lack of support. Patient comments: No complaints Patient's Mood: good [place] baby status: Doing well [place] feeding status: Pumping and bottle feeding Narrative: Elaine had uncomfortable feelings when latching the baby. Exam Physical Exam Vital signs: Temp Pulse Resp BP Pulse Ox 97.7 F 67 17 132/76 99 11/09/24 10:13 11/09/24 10:13 11/09/24 10:13 11/09/24 10:13 11/09/24 10:13 Vital Signs Reviewed: Yes Constitutional Constitutional: no acute distress HEENT Exam HEENT Exam: Normal Respiratory Exam Respiratory Exam: Normal Cardiovascular Exam Cardiovascular Exam: Normal Fundal Exam Fundus: Below Umbilicus and Firm Rectal Exam Rectal Exam: Normal Extremities Exam Extremity Exam: Normal Skin Exam Skin Exam: Normal Psychiatric Exam Psychiatric Exam: Normal Results Hemoglobin/Hematocrit: Hgb 11.7 g/dL (11.2-15.7) 11/07/24 08:20 Hct 36.0 % (36.0-46.0) 11/07/24 08:20 Abnormal Lab Findings: Abnormal Labs 11/07/24 08:20 WBC 14.58 H MPV 11.3 H Anion Gap 12.0 H AST 14 L Alkaline Phosphatase 189 H Albumin 2.7 L
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
[2024-11-09 11:48] LABS: Fentanyl Scr w/Rfx Confirm Negative ng/mL (<1)
== END 2024-11-09 14:04 | disposition home or self-care (01) | DRG 806 ==
PROVIDERS: Admitting Provider Advanced Practice Midwife; Visit Provider Advanced Practice Midwife
DX: O48.0 Post-term pregnancy (principal); F33.1 Major depressive disorder, recurrent, moderate; Z37.0 Single live birth; O99.354 Diseases of the nervous system complicating childbirth; O99.824 Streptococcus B carrier state complicating childbirth; O99.344 Other mental disorders complicating childbirth; Z3A.41 41 weeks gestation of pregnancy; F43.10 Post-traumatic stress disorder, unspecified; O99.02 Anemia complicating childbirth; D64.9 Anemia, unspecified; O99.284 Endocrine, nutritional and metabolic diseases complicating childbirth; E03.9 Hypothyroidism, unspecified; J45.909 Unspecified asthma, uncomplicated; G43.909 Migraine, unspecified, not intractable, without status migrainosus; O99.52 Diseases of the respiratory system complicating childbirth
CPT/HCPCS: 36415; 80053; 80307; 85027; 86850; 86900; 86901; J2540

== ENCOUNTER 2024-12-16 15:38 | Outpatient (REF) | payer MEDICAID, SELFPAY ==
[2024-12-20 12:27] LABS: Chlamydia Result Negative (Negative); GC Result Negative (Negative)
== END 2024-12-16 15:39 | disposition home or self-care (01) ==
LOC: LBN 15:38
PROVIDERS: Visit Provider Obstetrics & Gynecology
DX: Z39.2 Encounter for routine postpartum follow-up (principal); Z30.09 Encounter for other general counseling and advice on contraception
CPT/HCPCS: 87491; 87591

== ENCOUNTER 2025-02-24 14:24 | Outpatient (REF) | payer MEDICAID, SELFPAY ==
--- NOTE | 2025-02-24 13:40 | PAPFT_PTH ---
PATIENT: Elaine Duran LOC: [facility] U#:[id number] AGE/SX: 24/F ROOM: RE02/24/[address]: Debra Goins DO : 2000 BED: DIS: 02/24/2025 SPEC #: [id number] RECD: 02/24/25 18:21 STATUS: JAMES REQ #: [id number] ESMER: 02/24/25 13:[address]: Debra Goins DEPT: [facility] Cytology RECD BY: Roxanne Judge ENTERED: 02/24/25 18:21 SP TYPE: PAPFT OTHR DR: Unknown,Unknown Tissues: 1 - CX/ENDOCX FOR PAP SMEARS Procedures: PAP THIN PREP/[facility] Screening HPV DNA PROBE Comments: [id number] (HPV 16 & 18/45) (CHLAMYDIA/GC)
[2025-02-25 12:24] LABS: Chlamydia Result Negative (Negative); GC Result Negative (Negative)
== END 2025-02-24 14:25 | disposition home or self-care (01) ==
LOC: LBN 14:24
PROVIDERS: Visit Provider Obstetrics & Gynecology
DX: Z11.51 Encounter for screening for human papillomavirus (HPV) (principal); Z11.3 Encounter for screening for infections with a predominantly sexual mode of transmission; Z01.419 Encounter for gynecological examination (general) (routine) without abnormal findings
CPT/HCPCS: 87491; 87591; 88142; 87624